=== PATIENT | male | born 1985 | race Caucasian/White ===

== ENCOUNTER 2018-08-22 18:28 | Emergency (ER) | payer SELFPAY ==
[2018-08-22 19:27] VITALS: BP 146/68
--- NOTE | 2018-08-22 19:52 | ED ---
GI/ HPI - HPI Summary HPI Summary: 33 yr old male with the complaint of rash on base of penis. Rash present two weeks, dry, itchy. No urinary symptoms. no discharge. No fever or chills. The patient has been with new sexual partner for a few months. He is also concerned about STI. - History of Current Complaint Chief Complaint: UCGU Time Seen by Provider: 08/22/18 19:25 Stated Complaint: PERSONAL Pain Intensity: 0 - Allergy/Home Medications Allergies/Adverse Reactions: Allergies Allergy/AdvReac Type Severity Reaction Status Date / Time No Known Allergies Allergy Verified 08/22/18 19:20 Home Medications: Home Medications Acetaminophen [Extra Strength Non-Aspirin] 1,000 mg PO Q6H PRN 08/22/18 [ History Confirmed 08/22/18] Cyanocobalamin (Vitamin B-12) [Vitamin B-12] 500 mcg PO DAILY 08/22/18 [History Confirmed 08/22/18] PMH/Surg Hx/FS Hx/Imm Hx Infectious Disease History: No Infectious Disease History: Denies: Traveled Outside the [place] in Last 30 Days - Family History Known Family History: Positive: None - Social History Occupation: Employed Full-time Lives: With Family Alcohol Use: Occasionally Substance Use Type: Reports: None Smoking Status (MU): Former Smoker Review of Systems Constitutional: Negative Positive: other - rash on base of the penis All Other Systems Reviewed And Are Negative: Yes Physical Exam Triage Information Reviewed: Yes Vital Signs On Initial Exam: Initial Vitals Temp Pulse Resp BP Pulse Ox 98.6 F 63 16 146/68 99 08/22/18 19:21 08/22/18 19:21 08/22/18 19:21 08/22/18 19:21 08/22/18 19:21 Vital Signs Reviewed: Yes Appearance: Positive: Well-Appearing, No Pain Distress Skin: Positive: Warm Head/Face: Positive: Normal Head/Face Inspection Eyes: Positive: EOMI ENT: Positive: Normal ENT inspection, Pharynx normal Neck: Positive: Nontender Respiratory/Lung Sounds: Positive: Clear to Auscultation, Breath Sounds Present Cardiovascular: Positive: RRR. Negative: Murmur Abdomen Description: Positive: Soft. Negative: Distended Male Genital Exam: Positive: Other - on base of the penis there is dry skin, raised boarder, lichen appearance consitent with tinea. No drainage, no vesicles.. Negative: Hernia Mass, Scrotum Tenderness (R), Scrotum Tenderness (L ), Testicular Tenderness (R), Testicular Tenderness (L), Urethral Discharge Neurological: Positive: Sensory/Motor Intact, Alert, Oriented to Person Place, Time, CN Intact II-III Psychiatric: Positive: Normal - [place] Coma Scale Best Eye Response: 4 - Spontaneous Best Motor Response: 6 - Obeys Commands Best Verbal Response: 5 - Oriented Coma Scale Total: 15 Diagnostics - Vital Signs Vital Signs Temp Pulse Resp BP Pulse Ox 08/22/18 19:21 98.6 F 63 16 146/68 99 - Laboratory Lab Statement: Any lab studies that have been ordered have been reviewed, and results considered in the medical decision making process. GIGU Course/Dx - Course Course Of Treatment: 33 yr old with tinea cruis. STI screening tests sent. - Diagnoses Provider Diagnoses: Tinea cruris, Hypertension Discharge - Sign-Out/Discharge Documenting (check all that apply): Patient Departure All imaging exams completed and their final reports reviewed: No Studies - Discharge Plan Condition: Good Disposition: HOME Patient Education Materials: Jock Itch (ED), Safe Sex (ED), Hypertension (ED) Referrals: No Primary Care Phys,NOPCP [Primary Care Provider] - [facility] [Outside] - Billing Disposition and Condition Condition: GOOD Disposition: Home
== END 2018-08-22 20:20 | disposition home or self-care (01) ==
LOC: UCCORT 18:28
DX: B35.6 Tinea cruris (principal); I10 Essential (primary) hypertension; Z87.891 Personal history of nicotine dependence
CPT/HCPCS: 36415; 86592; 86703; 87491; 87591; 99201; G0463